=== PATIENT | male | born 1975 | race Hispanic/Latino ===

== ENCOUNTER 2016-09-16 14:20 | Emergency (ER) | payer SELFPAY ==
[~2016-09-16] VITALS: Ht 162.6 cm; Wt 72.0 kg
[2016-09-16] MEDS ORDERED: ONDANSETRON 4 MG (ZOFRAN) ORAL DISSOLVE TAB PO ONE (14:45)
[2016-09-16 15:02] LABS: MEAN CORPUSCULAR HEMOGLOBIN 30.8 PG (26.0-34.0); MEAN CORPUSCULAR VOLUME 87 FL (80-100); MEAN PLATELET VOLUME 10.2 FL (6.0-9.5); PLATELET COUNT 231 10^3uL (150-450); WHITE BLOOD COUNT 6.45 10^3uL (4.0-11.0)
[2016-09-16 15:06] LABS: MEAN CORPUSCULAR HGB CONC 35.5 g/dL (31.0-37.0)
[2016-09-16 15:15] LABS: INFLUENZA VIRUS TYPE A ANTIBOD Negative (NEGATIVE); INFLUENZA VIRUS TYPE B ANTIBOD Negative (NEGATIVE)
[2016-09-16 15:22] LABS: BAND NEUTROPHILS % 3 % (0-6); EOSINOPHILS % 1 % (0-4); LYMPHOCYTES # 1.2 #; MONOCYTES # 0.6 #; MONOCYTES % 10 % (3-11); SEGMENTED NEUTROPHILS % 67 % (51-67); TOTAL CELLS COUNTED 100
[2016-09-16 15:25] LABS: RBC MORPH NORMAL (NORMAL)
[2016-09-16 16:03] VITALS: BP 130/78
== END 2016-09-16 16:04 | disposition home or self-care (01) ==
LOC: EDUNIT# 14:20 → ED 14:24
DX: J11.1 Influenza due to unidentified influenza virus with other respiratory manifestations (principal)
CPT/HCPCS: 36415; 71020; 85025; 87502; 99282; 99283